=== PATIENT | male | born 1960 | race Caucasian/White ===

== ENCOUNTER 2016-04-21 00:32 | Emergency (ER) | payer OTHER ==
[~2016-04-21] VITALS: Ht 182.9 cm; Wt 81.6 kg
--- NOTE | 2016-04-21 01:02 | ED GENERAL ADULT ---
History of Present Illness General Chief Complaint: General Adult Stated Complaint: "FEEL LIKE SOMETHING IS LODGED IN MY THROAT X6HRS" Source: patient Exam Limitations: no limitations Vital Signs & Intake/Output Vital Signs & Intake/Output Vital Signs Date Time Temp Pulse Resp B/P Pulse O2 O2 Flow FiO2 Ox Delivery Rate 04/21 0814 94 24 140/82 96 Room Air 04/21 0700 97.8 100 18 159/81 99 Room Air 04/21 0330 96.7 77 18 144/77 96 Room Air 04/21 0157 97.6 75 18 132/70 96 Room Air 04/21 0057 97.3 87 18 142/94 95 Room Air Allergies Coded Allergies: No Known Allergies (04/21/16) Reconcile Medications Losartan Potassium 50 MG TABLET 1 TAB PO DAILY HTN (Reported) Mometasone Furoate (Asmanex) 220 MCG (30 DOSES) AER.POW.BA 220 MCG PO DAILY ASTHMA (Reported) Montelukast Sodium 10 MG TABLET 1 TAB PO DAILY ASTHMA/ALLERGY (Reported) Triage Note: PT TO TRIAGE C/O "SOMETHING STUCK IN MY THROAT." S/P EATING SOME APPETIZERS AND A LITTLE BIT OF STEAK AT [facility]. PT REPORTS UNABLE TO DRINK MUCH WATER/GINGERALE SINCE. Triage Nurses Notes Reviewed? yes Onset: Gradual Duration: hour(s): Timing: recent history Injury Environment: home Severity: mild, moderate Modifying Factors: Worsens With: eating. Associated Symptoms: "I feel like something is stuck." HPI: 56-year-old gentleman in prior good health presents with the sensation of something being stuck in his distal esophagus. He states that he ate a small piece of steak. Shortly afterwards, he felt, "like there was something in my throat." He says he drank some oswaldo khoi and that, "it came right back up." He feels like food and liquid is being stuck in his esophagus. He is otherwise well has no shortness of breath chest pain fever or chills. (FRANK MIN,BLADEMAR Cole) Past History Travel History Traveled to [place] past 21 day No Medical History Any Pertinent Medical History? see below for history Surgical History Surgical History: none Family History Hx Contributory? No (FRANK MIN,BALDEMAR Cole) Review of Systems Review of Systems Constitutional: Reports: no symptoms. EENTM: Reports: no symptoms. Respiratory: Reports: no symptoms. Cardiovascular: Reports: no symptoms. GI: Reports: no symptoms. Genitourinary: Reports: no symptoms. Musculoskeletal: Reports: no symptoms. Skin: Reports: no symptoms. Neurological/Psychological: Reports: no symptoms. Hematologic/Endocrine: Reports: no symptoms. Immunologic/Allergic: Reports: no symptoms. All Other Systems: Reviewed and Negative (FRANK MIN,BALDEMAR Cole) Physical Exam Physical Exam General Appearance: well developed/nourished, mild distress Head: atraumatic, normal appearance Eyes: Bilateral: normal appearance. Ears, Nose, Throat: normal pharynx, normal ENT inspection Neck: normal inspection, supple, full range of motion Respiratory: normal breath sounds, chest non-tender, no respiratory distress, quiet respiration Cardiovascular: regular rate/rhythm Gastrointestinal: normal bowel sounds, soft, non-tender, no organomegaly Back: normal inspection Extremities: normal inspection, normal capillary refill, normal range of motion, no edema Neurologic/Psych: no motor/sensory deficits, awake, alert, oriented x 3 Skin: intact, normal color, warm/dry Core Measures ACS in differential dx? No CVA/TIA Diagnosis: No Severe Sepsis Present: No Septic Shock Present: No (FRANK MIN,BALDEMAR Cole) Progress Differential Diagnoses I considered the following diagnoses in my evaluation of the patient: Esophageal foreign body versus other Plan of Care: Current Medications Sig/Dayne Start time Last Medication Dose Stop Time Status Admin Nitroglycerin 0.4 MG ONCE ONE 04/21 129 UNVr (Nitrostat) 04/21 130 Diagnostic Imaging: Viewed by Me: Radiology Read. Discussed w/RAD: Radiology Read. Radiology Impression: soft tissue neck... no fb Initial ED EKG: none Hand-Off Endorsed To: KETTY ATKINSON MD Endorsed Time: 0700 Pending: consult Comments: PATIENT: XAVIER MORA PRESENT AGE: 56 PATIENT ACCOUNT NO: [id number] : 62 LOCATION: [facility] ORDERING PHYSICIAN: BALDEMAR MARIE MD SERVICE DATE: 04/21/167 EXAM TYPE: RAD - XRY-SOFT TISSUE NECK EXAMINATION: XR SOFT TISSUE NECK CLINICAL INDICATION: Foreign body sensation COMPARISON: None TECHNIQUE: 2 views of the soft tissue neck were obtained. FINDINGS: Soft tissue films of the neck demonstrate a normal larynx, pharynx and upper trachea. No soft tissue swelling or opaque foreign body is demonstrated. Mild degenerative changes of the spine. The epiglottis is unremarkable. The lung apices are clear. IMPRESSION: No radiopaque foreign body or acute abnormality identified. DICTATED BY: CRISTINA ROBB MD DATE/TIME DICTATED:04/21/1657 CANCER PROGRAM DIRECTOR:KODI DATE/TIME TRANSCRIBED:04/21/1657 CONFIDENTIAL, DO NOT COPY WITHOUT APPROPRIATE AUTHORIZATION. <Electronically signed in Other Vendor System> SIGNED BY: CEZAR MIN,CRISTINA 04/21 0102 (BALDEMAR MARIE MD) Comments: GI successful with passage of food bolus. Recommend soft diet, prilosec. F/U 2 weeks in office. (KETTY ATKINSON MD) Departure Departure Disposition: HOME OR SELF CARE Departure Forms: Customer Survey General Discharge Information Comments 04/21/16, 2:17...discussed with dr. fernanda armstrong who will evaluate the patient this morning. 04/21/16, 6:55am... pt continues to feel food bolus. Unable to pass liquid into stomach. Discussed with Dr. Armstrong who will evalute. (BALDEMAR MARIE MD) Departure Time of Disposition: 913 Condition: Stable Clinical Impression Primary Impression: Esophageal foreign body Qualifiers: Encounter type: initial encounter Qualified Code: T18.108A - Unspecified foreign body in esophagus causing other injury, initial encounter Referrals: ANURAG MIN,JODY Rucker (PCP/Family) FERNANDA ARMSTRONG MD Call for follow up in 2 weeks Additional Instructions: Soft diet today. Tomorrow chop food into very small pieces. Prescriptions: Current Visit Scripts Omeprazole Magnesium (Prilosec Otc) 1 TAB PO DAILY #30 TAB (KETTY ATKINSON MD) Critical Care Note Critical Care Note Critical Care Time: non-applicable (BALDEMAR MARIE MD)
[2016-04-21] MEDS ORDERED: MONTELUKAST SOD10 M1 PO (03:47)
[2016-04-21] MEDS ORDERED: ASMANEX220 MC3 PO (03:47)
[2016-04-21] MEDS ORDERED: LOSARTAN POTASS50 M1 PO (03:47)
[2016-04-21] MEDS ORDERED: PRILOSEC OTC20 M1 PO (09:16)
[2016-04-21 10:00] VITALS: BP 131/72
--- NOTE | 2016-04-21 16:24 | Proc Note Endoscopy ---
Endoscopy Procedure Procedure Date: 04/21/16 Procedure Type: EGD Director Of Athletics: [place] Armstrong M.D. ASA Classification: II Indications: Acute dysphagia secondary to esophageal food impaction. The patient has had rare/intermittent solid dysphagia, brief. He denies heartburn, regurgitation, dyspepsia. While eating steak last night he had the acute onset of dysphagia, has not been able to handle liquids since that time. The patient denies chest pain, back pain, abdominal pain, shortness of breath, fever. Instrument: diagnostic gastroscope Meds Received: TAI, TIVA Patient's Tolerance: good Complications: none Extent Reached: second part of duodenum Procedure: patient signed informed consent, and was intubated and medicated. Pulse oximetry , blood pressure and cardiac monitoring were performed continuously throughout the procedure. The Olympus high-definition gastroscope was inserted into the mouth and advanced to the duodenum. Retroflexion was performed within the stomach to examine the cardia. Careful examination was performed. Findings: The proximal esophagus was normal. Mucosa of the esophagus was normal throughout. There was no food within the esophagus. There were no webs, strictures, or areas of extrinsic compression. There was no furrowing, ribbing, or micro-abscesses. There were no varices. The GE junction was at 42 cm, at and above which there was mucosal edema. In this context, a ring was not seen. There was no evident hiatal hernia. The stomach had normal distention and active peristalsis. The cardia was normal. The mucosa and folds of the stomach were normal throughout. There was a sizable food bolus in the fundus. The pyloric channel, duodenal bulb and duodenal sweep were normal. Impression: * Distal esophageal/GE junction edema, likely secondary to recently impacted food bolus. Not possible to ascertain existence of a ring Recommendations: * Clear liquids today, with soft food tomorrow. Advance as tolerated. * PPI for 1-2 weeks * Office visit to readdress symptoms CC: ANURAG MIN,JODY Rucker
== END 2016-04-21 11:12 ==
LOC: ERH 00:32
DX: T18.128A Food in esophagus causing other injury, initial encounter (principal); R13.10 Dysphagia, unspecified; I10 Essential (primary) hypertension; J45.909 Unspecified asthma, uncomplicated
CPT/HCPCS: 70360; 96374; 96376; J1610; J3490